=== PATIENT | male | born 1955 | race Caucasian/White ===

== ENCOUNTER 2016-11-30 05:18 | Day surgery (SDC) | payer BC ==
[2016-11-24 10:20] LABS: HEMOGLOBIN 16.2 g/dL (13.6-17.8)
[2016-11-24 10:21] LABS: HEMATOCRIT 47.2 % (40.0-51.0)
[2016-11-24 10:31] LABS: BUN (BLOOD UREA NITROGEN) 17 MG/DL (6-23); CHLORIDE, SERUM 108 MMOL/L (96-112); CO2 (CARBON DIOXIDE) 24 MMOL/L (24-34); CREATININE 1.05 MG/DL (0.70-1.30); GFR AFRICAN AMERICAN 88 ML/MIN (>=60); GFR NON AFRICAN AMERICAN 76 ML/MIN (>=60); GLUCOSE, SERUM 111 MG/DL (60-99); POTASSIUM, SERUM 4.2 MMOL/L (3.5-5.3); SODIUM, SERUM 140 MMOL/L (135-148)
--- NOTE | ~2016-11-30 | OP ---
Record Of Operation [facility] [address] [place]. [address] NAME: BALTAZAR WELLS : 55 [place] [facility] [place] [id number] AGE: 61 ADM/REG DATE : 11/30/16 MR#: [id number] REPORT SERV DATE: 11/30/16 DICTATED BY: AZNE ESCOBAR DATE: 11/30/16 REPORT STATUS : Draft TRANSCRIBED BY: MODL DATE: 11/30/16 DATE OF PROCEDURE: 11/30/2016 PREOPERATIVE DIAGNOSIS: Bilateral L5-S1 disk herniation and lumbar radiculopathy with L5 and S1 nerve root compression. POSTOPERATIVE DIAGNOSIS: Bilateral L5-S1 disk herniation and lumbar radiculopathy with L5 and S1 nerve root compression. PROCEDURE: Bilateral L5-S1 microdiskectomy, use of operative microscope, minimal access spine technology, intraoperative O-arm CT scan with computer navigation. SURGEON: Zane Escobar DO. ANESTHESIA: General. ESTIMATED BLOOD LOSS: 20 mL. COMPLICATIONS: None. INDICATIONS: The patient is a pleasant, 61-year-old with bilateral lower extremity pain, difficulty ambulating, legs give out. After failing conservative treatment and progressive decline, he elected to proceed with surgery. DESCRIPTION OF PROCEDURE: I identified the patient in the holding area. Consent was obtained. Went to the operating room. Underwent general anesthesia with endotracheal intubation. Prepped and draped in the usual sterile fashion. Operative safety pause was performed, and then, we proceeded with surgery. O-arm registration frame was placed in the iliac crest. O-arm was brought in for intraoperative CT scan. Computer registration materials were verified. Under computer guidance, bilateral longitudinal incisions were made over L5-S1 bilaterally. Tube dilators were used to minimally invasively dissect down to initially the right-sided L5-S1 interspace. Operative microscope was brought in. A gricel was used to perform laminotomy. Lexis performed a foraminotomy. Disk was incised and free disk material removed with pituitary. This was repeated again on the left side. The bilateral L5 and S1 nerve roots were free of compression. Irrigation performed. Hemostasis achieved. 40 mg Depo-Medrol injected over the nerve roots. Layered closure performed. Sterile dressings applied. The patient awoke and extubated and taken to recovery room in stable condition. FINDINGS: Bilateral L5-S1 stenosis and disk herniation. JCE/DOUGIE Zane Ayala Record Of Operation [address] [address] NAME: BALTAZAR WELLS : 55 [place] [facility] [place] [id number] AGE: 61 ADM/REG DATE : 11/30/16 MR#: [id number] REPORT SERV DATE: 11/30/16 DICTATED BY: ZANE ESCOBAR DATE: 11/30/16 REPORT STATUS : Draft TRANSCRIBED BY: MODL DATE: 11/30/16 DO Luz / [id number] CC: Zane Escobar DO
[~2016-11-30 05:18] MED LIST: FLONASE NAS; MOBIC15 MG PO; NORCO1 TA1 PO; VICODINTAB PO; ZESTRIL20 MG PO; ZYRTEC ALLGY10 MG PO
== END 2016-11-30 12:44 | disposition home or self-care (01) ==
LOC: SDC 05:18
PROVIDERS: Orthopaedic Surgery
PROC: 01NB0ZZ Release Lumbar Nerve, Open Approach (ICD-10-PCS; principal; 2016-11-30 06:45)
DX: M51.17 Intervertebral disc disorders with radiculopathy, lumbosacral region (principal); M48.07 Spinal stenosis, lumbosacral region; I10 Essential (primary) hypertension; F41.9 Anxiety disorder, unspecified; F32.9 Major depressive disorder, single episode, unspecified; G47.33 Obstructive sleep apnea (adult) (pediatric); E66.01 Morbid (severe) obesity due to excess calories; Z68.27 Body mass index [BMI] 27.0-27.9, adult; Z79.1 Long term (current) use of non-steroidal anti-inflammatories (NSAID); Z79.899 Other long term (current) drug therapy; Z96.652 Presence of left artificial knee joint; Z90.49 Acquired absence of other specified parts of digestive tract; Z98.890 Other specified postprocedural states
CPT/HCPCS: 80048; 85014; 85018; 88304; 88311; 93005; J0330; J0690; J1030; J2250; J2405; J2710; J3010